=== PATIENT | female | born 1985 | race Caucasian/White ===

== ENCOUNTER 2016-09-12 16:14 | Inpatient (IN) | payer BC ==
[2016-09-12] MEDS ORDERED: Terbutaline 1 MG/ML SDV SUBCUT PRN (17:10)
[2016-09-12] MEDS ORDERED: Oxytocin/Lactated Ringers 30 UNIT/500 ML BAG IV SCH ×2 (17:15→17:30)
[2016-09-12] MEDS ORDERED: Carboprost Tromethamine 250 MCG/1 ML Amp IM PRN (17:17)
[2016-09-12] MEDS ORDERED: Sodium Chloride 0.9% 10 ML Syringe FLUSH PRN (17:17)
[2016-09-12] MEDS ORDERED: Lidocaine 1% 50 ML MDV INJECT PRN (17:17)
[2016-09-12] MEDS ORDERED: Sodium Chloride 0.9% 2.5 ML Syringe FLUSH PRN (17:17)
[2016-09-12] MEDS ORDERED: Water For Irrigation,Sterile 1,000 ML Container IRR PRN (17:17)
[2016-09-12] MEDS ORDERED: Methylergonovine 0.2 MG/1 ML Amp IM PRN (17:17)
[2016-09-12] MEDS ORDERED: Misoprostol 200 MCG Tab PO PRN (17:17)
[2016-09-12] MEDS: Lactated Ringers 1,000 ML IV SCH (17:40)
[2016-09-12] MEDS: Misoprostol 25 MCG (1/4 of 100 MCG) Tab VAG SCH ×2 (18:55→23:18)
[2016-09-12] MEDS ORDERED: Misoprostol 50 MCG (1/2 of 100 MCG) Tab VAG PRN (23:04)
[2016-09-12] MEDS ORDERED: Misoprostol 25 MCG (1/4 of 100 MCG) Tab ONE (23:12)
[2016-09-12] MEDS: Butorphanol 1 MG/ML SDV IVPUSH PRN (23:59)
[2016-09-13] MEDS: Butorphanol 1 MG/ML SDV IVPUSH PRN ×4 (05:48→12:14)
[2016-09-13] MEDS: Lactated Ringers 1,000 ML IV SCH ×3 (05:54→18:38)
[2016-09-13] MEDS ORDERED: fentaNYL 100 MCG/2 ML SDV ONE (12:51)
[2016-09-13] MEDS ORDERED: Ropivacaine HCl/PF 100 ML ONE (12:51)
--- NOTE | 2016-09-13 13:15 | PCM.PREANE ---
Preanesthetic Assessment - Anesthesia/Transfusion/Family Hx Anesthesia History: Prior Anesthesia Without Reaction - Review of Systems General: No Symptoms Pulmonary: No Symptoms Cardiovascular: No Symptoms Gastrointestinal: No symptoms Neurological: No Symptoms Other: Reports: None - Physical Assessment Height: 5 ft 9 in Weight: 108.862 kg ASA Class: 2 Mental Status: Alert & Oriented x3 Airway Class: Mallampati = 2 Dentition: Reports: Normal Dentition Thyro-Mental Finger Breadths: 3 Mouth Opening Finger Breadths: 3 ROM/Head Extension: Full Lungs: Clear to auscultation, Normal respiratory effort Cardiovascular: Regular Rate, Regular Rhythm - Lab Values: Laboratory Last Values WBC 12.22 K/uL (4.0-11.0) H 09/12/16 17:36 RBC 4.29 M/uL (4.30-5.90) L 09/12/16 17:36 Hgb 11.3 g/dL (12.0-16.0) L 09/12/16 17:36 Hct 34.9 % (36.0-46.0) L 09/12/16 17:36 MCV 81.4 fL (80.0-98.0) 09/12/16 17:36 MCH 26.3 pg (27.0-32.0) L 09/12/16 17:36 MCHC 32.4 g/dL (31.0-37.0) 09/12/16 17:36 RDW Std Deviation 40.6 fl (28.0-62.0) 09/12/16 17:36 RDW Coeff of Ayush 14 % (11.0-15.0) 09/12/16 17:36 Plt Count 272 K/uL (150-400) 09/12/16 17:36 MPV 11.20 fL (7.40-12.00) 09/12/16 17:36 Nucleated RBC % 0.0 /100WBC 09/12/16 17:36 Nucleated RBCs # 0 K/uL 09/12/16 17:36 Blood Type A POSITIVE 09/12/16 17:36 Antibody Screen NEGATIVE 09/12/16 17:36 - Allergies Allergies/Adverse Reactions: Allergies Allergy/AdvReac Type Severity Reaction Status Date / Time Penicillins Allergy Hives Verified 09/12/16 17:02 - Acknowledgements Anesthesia Type Planned: Epidural Pt an Appropriate Candidate for the Planned Anesthesia: Yes Alternatives and Risks of Anesthesia Discussed w Pt/Guardian: Yes Pt/Guardian Understands and Agrees with Anesthesia Plan: Yes PreAnesthesia Questionnaire HEENT History: Reports: None Cardiovascular History: Reports: None Respiratory History: Reports: None Gastrointestinal History: Reports: GERD Genitourinary History: Reports: None [employer] History: Reports: : 1 Para: 0 LMP (Approximate): Musculoskeletal History: Reports: None Neurological History: Reports: Migraines Psychiatric History: Reports: None Endocrine/Metabolic History: Reports: Obesity/BMI 30+ Hematologic History: Reports: None Immunologic History: Reports: None Oncologic (Cancer) History: Reports: None Dermatologic History: Reports: None - Past Surgical History HEENT Surgical History: Reports: Tonsillectomy - SUBSTANCE USE Smoking Status *Q: Never Smoker Tobacco Use Within Last Twelve Months: No Recreational Drug Use History: No - CURRENT (IN HOUSE) MEDS Current Meds: Current Medications Butorphanol Tartrate (Stadol) 1 mg IVPUSH ASDIRECTED PRN PRN Reason: Pain Last Admin: 09/13/16 12:14 Dose: 1 mg Carboprost Tromethamine (Hemabate Ds) 250 mcg IM ASDIRECTED PRN PRN Reason: Post Hemorrhage Oxytocin/Lactated Ringer's (Pitocin In Lr 30 Units/500 Ml) 30 unit in 500 mls @ 2 mls/hr IV TITRATE NASIMA; 2 MUNITS/MIN PRN Reason: Protocol Last Titration: 09/13/16 11:43 Dose: 14 munits/min, 14 mls/hr Lactated Ringer's (Ringers, Lactated) 1,000 mls @ 150 mls/hr IV ASDIRECTED NASIMA Last Admin: 09/13/16 12:55 Dose: 150 mls/hr Lidocaine HCl (Xylocaine 1%) 50 ml INJECT .ONCE PRN PRN Reason: Laceration repair Methylergonovine Maleate (Methergine) 0.2 mg IM ASDIRECTED PRN PRN Reason: Post Hemorrhage Misoprostol (Cytotec) 25 mcg VAG .ONCE NASIMA Last Admin: 09/12/16 23:18 Dose: 25 mcg Misoprostol (Cytotec) 200 mcg PO .ONCE PRN PRN Reason: Post Hemorrhage Misoprostol (Cytotec) 25 mcg VAG Q4H PRN PRN Reason: Other Last Admin: 09/13/16 03:12 Dose: 25 mcg Sodium Chloride (Saline Flush) 10 ml FLUSH ASDIRECTED PRN PRN Reason: Keep Vein Open Sodium Chloride (Saline Flush) 2.5 ml FLUSH ASDIRECTED PRN PRN Reason: Keep Vein Open Sterile Water (Sterile Water For Irrigation) 1,000 ml IRR ASDIRECTED PRN PRN Reason: delivery Terbutaline Sulfate (Brethine) 0.25 mg SUBCUT ASDIRECTED PRN PRN Reason: Tacysystole Discontinued Medications Fentanyl (Sublimaze) Confirm Administered Dose 100 mcg .ROUTE .STK-MED ONE Stop: 09/13/16 12:52 Oxytocin/Lactated Ringer's (Pitocin In Lr 30 Units/500 Ml) 30 unit in 500 mls @ 999 mls/hr IV TITRATE NASIMA PRN Reason: 999 MUNITS/MIN Stop: 09/12/16 18:01 Ropivacaine (Naropin 0.2%) Confirm Administered Dose 100 mls @ as directed .ROUTE .STK-MED ONE Stop: 09/13/16 12:52 Misoprostol (Cytotec) Confirm Administered Dose 25 mcg .ROUTE .STK-MED ONE Stop: 09/12/16 23:13
[2016-09-13] MEDS ORDERED: Acetaminophen 500 MG Tab PO ONE (18:33)
[2016-09-13] MEDS ORDERED: Acetaminophen 500 MG Tab ONE (18:35)
[2016-09-13] MEDS ORDERED: ceFAZolin 2 GM in Premix Bag 1 BAG IV ONE (20:43)
[2016-09-13] MEDS ORDERED: Lanolin 100% Cream 7 GM Tube TOP PRN (22:07)
[2016-09-13] MEDS ORDERED: Bisacodyl 10 MG Supp RECTAL PRN (22:07)
[2016-09-13] MEDS ORDERED: oxyCODONE 5 MG Tab PO PRN (22:07)
[2016-09-13] MEDS ORDERED: Docusate Sodium 100 MG Cap PO PRN (22:07)
[2016-09-13] MEDS ORDERED: Ibuprofen 400 MG Tab PO PRN (22:07)
[2016-09-13] MEDS ORDERED: Acetaminophen 500 MG Tab PO PRN (22:07)
[2016-09-13] MEDS ORDERED: Witch Hazel Medicated Pads 40/Jar TOP PRN (22:07)
[2016-09-13] MEDS ORDERED: Benzocaine/Menthol 20%-0.5% Spray 78 GM Cannister TOP PRN (22:07)
[2016-09-13] MEDS ORDERED: Aluminum Hydroxide/Magnesium Hydroxide/Simethicone Susp 30 ML Cup PO PRN (22:07)
[2016-09-13] MEDS: Ibuprofen 800 MG Tab PO PRN (23:50)
[2016-09-14] MEDS: ceFAZolin 1 GM in Premix Bag 1 BAG IV SCH ×3 (04:02→20:00)
[2016-09-14] MEDS: Acetaminophen 500 MG Tab PO PRN ×2 (09:24→18:49)
--- NOTE | 2016-09-14 09:29 | PCM.PNPP ---
- General Info Date of Service: 09/14/16 Functional Status: Reports: pain controlled, tolerating diet, ambulating, urinating - Review of Systems General: Denies: Fever, Weakness Pulmonary: Denies: shortness of breath Cardiovascular: Denies: Chest Pain, Palpitations, Lightheadedness Gastrointestinal: Denies: Nausea, Vomiting Genitourinary: Denies: flank pain Psychiatric: Reports: no symptoms - General Info Date of Service: 09/14/16 - Patient Data Vital Signs - most recent: Last Vital Signs Temp 36.7 C 09/14/16 09:17 Pulse 90 09/14/16 09:17 Resp 20 09/14/16 09:17 BP 133/56 L 09/14/16 09:17 Pulse Ox 97 09/14/16 09:17 Weight - most recent: 108.862 kg Lab Results - last 24 hrs: Laboratory Results - last 24 hr 09/14/16 Range/Units 05:26 Hgb 8.9 L (12.0-16.0) g/dL Hct 27.1 L (36.0-46.0) % Med Orders - Current: Current Medications Acetaminophen (Tylenol Extra Strength) 500 mg PO Q4H PRN PRN Reason: Pain Acetaminophen (Tylenol Extra Strength) 1,000 mg PO Q4H PRN PRN Reason: Pain Last Admin: 09/14/16 09:24 Dose: 1,000 mg Al Hydroxide/Mg Hydroxide (Mag-Al Plus) 30 ml PO Q8H PRN PRN Reason: Heartburn Benzocaine/Menthol (Dermoplast Pain Relief 20%-0.5% [place]) 78 gm TOP ASDIRECTED PRN PRN Reason: Perineal Comfort Measure Last Admin: 09/13/16 23:50 Dose: 78 gm Bisacodyl (Dulcolax) 10 mg RECTAL .ONCE PRN PRN Reason: Constipation Carboprost Tromethamine (Hemabate Ds) 250 mcg IM ASDIRECTED PRN PRN Reason: Post Hemorrhage Docusate Sodium (Colace) 100 mg PO BID PRN PRN Reason: Constipation Emollient Ointment (Lansinoh Hpa) 0 gm TOP ASDIRECTED PRN PRN Reason: Sore Nipples Oxytocin/Lactated Ringer's (Pitocin In Lr 30 Units/500 Ml) 30 unit in 500 mls @ 2 mls/hr IV TITRATE NASIMA; 2 MUNITS/MIN PRN Reason: Protocol Last Titration: 09/13/16 11:43 Dose: 14 munits/min, 14 mls/hr Lactated Ringer's (Ringers, Lactated) 1,000 mls @ 150 mls/hr IV ASDIRECTED NASIMA Last Admin: 09/13/16 18:38 Dose: 150 mls/hr Cefazolin Sodium/Dextrose 1 gm (/ Premix) 50 mls @ 100 mls/hr IV Q8H NASIMA Stop: 09/14/16 20:29 Last Admin: 09/14/16 04:02 Dose: 100 mls/hr Ibuprofen (Motrin) 400 mg PO Q4H PRN PRN Reason: Pain Ibuprofen (Motrin) 800 mg PO Q6H PRN PRN Reason: Pain Last Admin: 09/13/16 23:50 Dose: 800 mg Methylergonovine Maleate (Methergine) 0.2 mg IM ASDIRECTED PRN PRN Reason: Post Hemorrhage Misoprostol (Cytotec) 25 mcg VAG Q4H PRN PRN Reason: Other Last Admin: 09/13/16 03:12 Dose: 25 mcg Oxycodone HCl (Oxycodone) 5 mg PO Q2H PRN PRN Reason: Pain Sodium Chloride (Saline Flush) 10 ml FLUSH ASDIRECTED PRN PRN Reason: Keep Vein Open Witch Deysi (Tucks) 1 pad TOP ASDIRECTED PRN PRN Reason: comfort care Last Admin: 09/13/16 23:49 Dose: 1 pad Discontinued Medications Acetaminophen (Tylenol Extra Strength) 1,000 mg PO ONETIME ONE Stop: 09/13/16 18:34 Last Admin: 09/13/16 18:38 Dose: 1,000 mg Acetaminophen (Tylenol Extra Strength) Confirm Administered Dose 1,000 mg .ROUTE .STK-MED ONE Stop: 09/13/16 18:36 Last Admin: 09/14/16 04:04 Dose: 1,000 mg Butorphanol Tartrate (Stadol) 1 mg IVPUSH ASDIRECTED PRN PRN Reason: Pain Last Admin: 09/13/16 12:14 Dose: 1 mg Fentanyl (Sublimaze) Confirm Administered Dose 100 mcg .ROUTE .STK-MED ONE Stop: 09/13/16 12:52 Oxytocin/Lactated Ringer's (Pitocin In Lr 30 Units/500 Ml) 30 unit in 500 mls @ 999 mls/hr IV TITRATE NASIMA PRN Reason: 999 MUNITS/MIN Stop: 09/12/16 18:01 Ropivacaine (Naropin 0.2%) Confirm Administered Dose 100 mls @ as directed .ROUTE .STK-MED ONE Stop: 09/13/16 12:52 Cefazolin Sodium/Dextrose 2 gm (/ Premix) 50 mls @ 100 mls/hr IV ONETIME ONE Stop: 09/13/16 21:12 Last Admin: 09/13/16 20:49 Dose: 100 mls/hr Lidocaine HCl (Xylocaine 1%) 50 ml INJECT .ONCE PRN PRN Reason: Laceration repair Misoprostol (Cytotec) 25 mcg VAG .ONCE NASIMA Last Admin: 09/12/16 23:18 Dose: 25 mcg Misoprostol (Cytotec) 200 mcg PO .ONCE PRN PRN Reason: Post Hemorrhage Misoprostol (Cytotec) Confirm Administered Dose 25 mcg .ROUTE .STK-MED ONE Stop: 09/12/16 23:13 Sodium Chloride (Saline Flush) 2.5 ml FLUSH ASDIRECTED PRN PRN Reason: Keep Vein Open Sterile Water (Sterile Water For Irrigation) 1,000 ml IRR ASDIRECTED PRN PRN Reason: delivery Last Admin: 09/13/16 21:15 Dose: 1,000 ml Terbutaline Sulfate (Brethine) 0.25 mg SUBCUT ASDIRECTED PRN PRN Reason: Tacysystole - Interaction Infant Disposition, : in Room with Family Infant Interaction: Holding Infant Feeding: Breastfed Infant; Nursed Well Support Person: - Recovery Exam Fundal Tone: Firm Fundal Level: At Umbilicus Fundal Placement: Left Lochia Amount: Scant Lochia Color: Rubra/Red Perineum Description: Intact, Minimal Bruising/Swelling Episiotomy/Laceration: Approximated Bladder Status: Voiding Urinary Elimination: Voided - Exam General: alert, oriented Lungs: Normal respiratory effort Cardiovascular: Regular Rate, Regular Rhythm Abdomen: soft, no tenderness. No: CVA tenderness Extremities: no calf tenderness Skin: warm, dry, intact Psy/Mental Status: alert, normal affect - Problem List & Annotations (1) Vaginal delivery SNOMED Code(s): 435349460 Code(s): O80 - ENCOUNTER FOR FULL-TERM UNCOMPLICATED DELIVERY Status: Acute Current Visit: Yes - Problem List Review Problem List Initiated/Reviewed/Updated: Yes - My Orders Last 24 Hours: My Active Orders 09/13/16 22:07 Patient Status [ADT] Routine May Shower [RC] ASDIRECTED Up ad Lola [RC] ASDIRECTED Vital Signs [RC] PER UNIT ROUTINE Acetaminophen [Tylenol Extra Strength] 1,000 mg PO Q4H PRN Acetaminophen [Tylenol Extra Strength] 500 mg PO Q4H PRN Alum Hydrox/Mag Hydrox/Simeth [Mag-Al Plus] 30 ml PO Q8H PRN Benzocaine/Menthol [Dermoplast Pain Relief 20%-0.5% [place]] 78 gm TOP ASDIRECTED PRN Bisacodyl [Dulcolax] 10 mg RECTAL .ONCE PRN Docusate Sodium [Colace] 100 mg PO BID PRN Ibuprofen [Motrin] 400 mg PO Q4H PRN Ibuprofen [Motrin] 800 mg PO Q6H PRN Lanolin [Lansinoh HPA] See Dose Instructions TOP ASDIRECTED PRN Witch Deysi [Tucks] 1 pad TOP ASDIRECTED PRN oxyCODONE 5 mg PO Q2H PRN Assess Lochia [WOMSER] Per Unit Routine Assess Uterine Involution [WOMSER] Per Unit Routine Peripheral IV Discontinue [OM.PC] Routine 09/13/16 22:08 Ice Therapy [OM.PC] Per Unit Routine Perineal Care [OM.PC] Per Unit Routine Sitz Bath [OM.PC] Per Unit Routine 09/13/16 Dinner Regular Diet [DIET] 09/14/16 04:00 ceFAZolin [Ancef] 1 gm Premix Bag 1 bag IV Q8H - Assessment Assessment:: PPD 1 status post /2nd MLL repaired - Plan Plan:: Continue cares--remains afebrile. Continue antibiotics for total of 24 hours. Anticipate discharge in morning.
[2016-09-14] MEDS: Ibuprofen 800 MG Tab PO PRN (14:12)
[2016-09-15] MEDS: Ibuprofen 800 MG Tab PO PRN (04:31)
[2016-09-15 04:56] VITALS: BP 115/56
--- NOTE | 2016-09-15 07:44 | PCM48HPAN ---
Post Anesthesia Note - EVALUATION WITHIN 48HRS OF ANESTHETIC Vital Signs in Normal Range: Yes Patient Participated in Evaluation: Yes Respiratory Function Stable: Yes Airway Patent: Yes Cardiovascular Function Stable: Yes Hydration Status Stable: Yes Pain Control Satisfactory: Yes Nausea and Vomiting Control Satisfactory: Yes Mental Status Recovered: Yes
--- NOTE | 2016-09-15 09:45 | PCM.PNPP ---
- General Info Date of Service: 09/15/16 Subjective Update: Patient feels well overall--she is ambulating, voiding, pain well controlled. Lochia is dissipating nicely. She is working with . She would like to go home today. Functional Status: Reports: pain controlled, tolerating diet, ambulating, urinating - Review of Systems General: Denies: Fever, Weakness Cardiovascular: Denies: Chest Pain, Palpitations, Lightheadedness Gastrointestinal: Denies: Nausea, Vomiting Genitourinary: Denies: flank pain Skin: Reports: no symptoms Psychiatric: Reports: no symptoms - General Info Date of Service: 09/15/16 - Patient Data Vital Signs - most recent: Last Vital Signs Temp 36.4 C 09/15/16 04:00 Pulse 73 09/15/16 04:00 Resp 16 09/15/16 04:00 BP 115/56 L 09/15/16 04:00 Pulse Ox 96 09/15/16 04:00 Weight - most recent: 108.862 kg Med Orders - Current: Current Medications Acetaminophen (Tylenol Extra Strength) 500 mg PO Q4H PRN PRN Reason: Pain Acetaminophen (Tylenol Extra Strength) 1,000 mg PO Q4H PRN PRN Reason: Pain Last Admin: 09/14/16 18:49 Dose: 1,000 mg Al Hydroxide/Mg Hydroxide (Mag-Al Plus) 30 ml PO Q8H PRN PRN Reason: Heartburn Benzocaine/Menthol (Dermoplast Pain Relief 20%-0.5% [place]) 78 gm TOP ASDIRECTED PRN PRN Reason: Perineal Comfort Measure Last Admin: 09/13/16 23:50 Dose: 78 gm Bisacodyl (Dulcolax) 10 mg RECTAL .ONCE PRN PRN Reason: Constipation Carboprost Tromethamine (Hemabate Ds) 250 mcg IM ASDIRECTED PRN PRN Reason: Post Hemorrhage Docusate Sodium (Colace) 100 mg PO BID PRN PRN Reason: Constipation Emollient Ointment (Lansinoh Hpa) 0 gm TOP ASDIRECTED PRN PRN Reason: Sore Nipples Oxytocin/Lactated Ringer's (Pitocin In Lr 30 Units/500 Ml) 30 unit in 500 mls @ 2 mls/hr IV TITRATE NASIMA; 2 MUNITS/MIN PRN Reason: Protocol Last Titration: 09/13/16 11:43 Dose: 14 munits/min, 14 mls/hr Lactated Ringer's (Ringers, Lactated) 1,000 mls @ 150 mls/hr IV ASDIRECTED NASIMA Last Admin: 09/13/16 18:38 Dose: 150 mls/hr Ibuprofen (Motrin) 400 mg PO Q4H PRN PRN Reason: Pain Ibuprofen (Motrin) 800 mg PO Q6H PRN PRN Reason: Pain Last Admin: 09/15/16 04:31 Dose: 800 mg Methylergonovine Maleate (Methergine) 0.2 mg IM ASDIRECTED PRN PRN Reason: Post Hemorrhage Misoprostol (Cytotec) 25 mcg VAG Q4H PRN PRN Reason: Other Last Admin: 09/13/16 03:12 Dose: 25 mcg Oxycodone HCl (Oxycodone) 5 mg PO Q2H PRN PRN Reason: Pain Sodium Chloride (Saline Flush) 10 ml FLUSH ASDIRECTED PRN PRN Reason: Keep Vein Open Witch Deysi (Tucks) 1 pad TOP ASDIRECTED PRN PRN Reason: comfort care Last Admin: 09/13/16 23:49 Dose: 1 pad Discontinued Medications Acetaminophen (Tylenol Extra Strength) 1,000 mg PO ONETIME ONE Stop: 09/13/16 18:34 Last Admin: 09/13/16 18:38 Dose: 1,000 mg Acetaminophen (Tylenol Extra Strength) Confirm Administered Dose 1,000 mg .ROUTE .STK-MED ONE Stop: 09/13/16 18:36 Last Admin: 09/14/16 04:04 Dose: 1,000 mg Butorphanol Tartrate (Stadol) 1 mg IVPUSH ASDIRECTED PRN PRN Reason: Pain Last Admin: 09/13/16 12:14 Dose: 1 mg Fentanyl (Sublimaze) Confirm Administered Dose 100 mcg .ROUTE .STK-MED ONE Stop: 09/13/16 12:52 Oxytocin/Lactated Ringer's (Pitocin In Lr 30 Units/500 Ml) 30 unit in 500 mls @ 999 mls/hr IV TITRATE NASIMA PRN Reason: 999 MUNITS/MIN Stop: 09/12/16 18:01 Ropivacaine (Naropin 0.2%) Confirm Administered Dose 100 mls @ as directed .ROUTE .STK-MED ONE Stop: 09/13/16 12:52 Cefazolin Sodium/Dextrose 2 gm (/ Premix) 50 mls @ 100 mls/hr IV ONETIME ONE Stop: 09/13/16 21:12 Last Admin: 09/13/16 20:49 Dose: 100 mls/hr Cefazolin Sodium/Dextrose 1 gm (/ Premix) 50 mls @ 100 mls/hr IV Q8H NASIMA Stop: 09/14/16 20:29 Last Admin: 09/14/16 20:00 Dose: 100 mls/hr Lidocaine HCl (Xylocaine 1%) 50 ml INJECT .ONCE PRN PRN Reason: Laceration repair Misoprostol (Cytotec) 25 mcg VAG .ONCE NASIMA Last Admin: 09/12/16 23:18 Dose: 25 mcg Misoprostol (Cytotec) 200 mcg PO .ONCE PRN PRN Reason: Post Hemorrhage Misoprostol (Cytotec) Confirm Administered Dose 25 mcg .ROUTE .STK-MED ONE Stop: 09/12/16 23:13 Sodium Chloride (Saline Flush) 2.5 ml FLUSH ASDIRECTED PRN PRN Reason: Keep Vein Open Sterile Water (Sterile Water For Irrigation) 1,000 ml IRR ASDIRECTED PRN PRN Reason: delivery Last Admin: 09/13/16 21:15 Dose: 1,000 ml Terbutaline Sulfate (Brethine) 0.25 mg SUBCUT ASDIRECTED PRN PRN Reason: Tacysystole - Interaction Infant Disposition, : in Room with Family Infant Interaction: Holding Feeding: Breastfed Infant; Nursed Well Support Person: - Recovery Exam Fundal Tone: Firm Fundal Level: At Umbilicus Fundal Placement: Midline Lochia Amount: Small Lochia Color: Rubra/Red Perineum Description: Intact, Minimal Bruising/Swelling Episiotomy/Laceration: Approximated Bladder Status: Nonpalpable Urinary Elimination: Voided - Exam General: alert, oriented Lungs: Normal respiratory effort Cardiovascular: Regular Rate, Regular Rhythm Abdomen: soft, no tenderness. No: CVA tenderness Extremities: no calf tenderness Skin: warm, dry, intact Psy/Mental Status: alert, normal affect - Problem List & Annotations (1) Vaginal delivery SNOMED Code(s): 397572513 Code(s): O80 - ENCOUNTER FOR FULL-TERM UNCOMPLICATED DELIVERY Status: Acute Current Visit: Yes - Problem List Review Problem List Initiated/Reviewed/Updated: Yes - My Orders Last 24 Hours: My Active Orders 09/15/16 09:43 Ready for Discharge [RC] PER UNIT ROUTINE - Assessment Assessment:: PPD 2 status post /2nd MLL repaired - Plan Plan:: Discharge to home today. Discharge instructions reviewed. Infection and bleeding warnings reviewed. Follow up at [facility] 6 weeks.
[2016-09-15] MEDS: Acetaminophen 500 MG Tab PO PRN (09:48)
--- NOTE | 2016-09-16 06:12 | OR ---
SURGEON: Zenaida Alcaraz M.D. DATE OF PROCEDURE: 09/13/2016 PREOPERATIVE DIAGNOSES: 1. A 39 and 5-week intrauterine . 2. Premature prolonged rupture of membranes. POSTOPERATIVE DIAGNOSES: 1. A 39 and 5-week intrauterine . 2. Premature prolonged rupture of membranes. PROCEDURE: Spontaneous vaginal delivery, second-degree midline laceration repair. ESTIMATED BLOOD LOSS: 350 mL. ANESTHESIA: Epidural. COMPLICATIONS: None. FINDINGS: Term male, score 8 at 1 minute and 9 at 5 minutes, weight of 4090 g. Spontaneous delivery, intact placenta, 3-vessel cord. Maternal fever, received Ancef 2 g. DISPOSITION: to nursery, mom in LDRP, stable. PROCEDURE DETAILS: Ignacia is a 31-year-old, G1, P0, at 39 and 5 weeks' gestational age, who was admitted on the late afternoon of 09/13/2016 with spontaneous rupture of membranes. Clear fluid was noted. She was group B beta strep negative. On initial examination, she was found to be 2 cm, 50% effaced, -3 station. Therefore, she was initiated on Cytotec ripening. heart tones category one with baseline in the 120s. Routine labs have been drawn. IV hydration was initiated. She received 3 doses of Cytotec in cervix, then nicely to 2 cm, 80% effaced, and minus 2 station by the following morning. Therefore, she was initiated on Pitocin augmentation at that juncture. 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 She became more comfortable thereafter and began progressing more rapidly. In the early afternoon, she was found to be 6 cm and shortly before 6:00 p.m., was found to be 9.5 cm, 100% effaced, 0 station. She progressed to complete within the next hour and began pushing efforts. Shortly after 6:30 p.m., she had a temperature of a 100.7, she received Tylenol Extra Strength and received 300 of IV fluid bolus. The patient pushed readily for the next 2 hours to a +4 station. She did have one further temperature of 101.2 and received 2 g of Ancef. heart tones remained in the 150s. Upon my arrival, the patient was placed in modified dorsal lithotomy position, was prepped and draped in the usual aseptic manner. Continued with pushing efforts, was able to push to a +5 station, delivered 's head atraumatically, spontaneously, followed by anterior shoulder, posterior shoulder, remainder of body by without difficulty. Nuchal cord x1 was present and reduced manually. Infant's oropharynx, nares bulb suctioned. Cord was clamped x2 and cut. was handed off to his mother, attending nursing staff at her side. Cord arterial, cord venous, cord blood sampling was obtained. Light suprapubic pressure was applied while the placenta was delivered spontaneously intact. We sent to Pathology for further analysis. Vigorous fundal uterine massage was then applied while 30 units of Pitocin was delivered in 500 mL IV fluid. Upon inspection of cervix, vaginal sidewalls, and perineum, there was found to be a second-degree midline laceration present and this was repaired using 3-0 Vicryl in the usual fashion and 2 first-degree hymenal lacerations were reapproximated using [id number] sutures. Hemostasis thereafter evident. Uterus remained firm. Sponge, instrument, needle count was correct x2. The patient tolerated the procedure well. Overall, she will remain in LDRP. in nursery. We will continue antibiotics for 24 hours. KIRILL / MAKENNA /[id number]
== END 2016-09-15 12:00 | disposition home or self-care (01) | DRG 560 ==
LOC: MW.OBCHECK 16:14 → MW.OB 16:15 → MW.OBCHECK 09-13 00:57 → MW.OB 09-13 00:59 → OBSVTOIN 09-13 21:15
PROVIDERS: ADMIT Obstetrics & Gynecology; ATTEND Obstetrics & Gynecology
PROC: 10E0XZZ Delivery of Products of Conception, External Approach (ICD-10-PCS; principal; 2016-09-13)
PROC: 0KQM0ZZ Repair Perineum Muscle, Open Approach (ICD-10-PCS; 2016-09-13)
PROC: 3E0P7GC Introduction of Other Therapeutic Substance into Female Reproductive, Via Natural or Artificial Opening (ICD-10-PCS; 2016-09-13)
DX: O42.92 Full-term premature rupture of membranes, unspecified as to length of time between rupture and onset of labor (principal); O70.1 Second degree perineal laceration during delivery; O75.2 Pyrexia during labor, not elsewhere classified; O69.1XX0 Labor and delivery complicated by cord around neck, with compression, not applicable or unspecified; Z3A.39 39 weeks gestation of pregnancy; Z37.0 Single live birth
CPT/HCPCS: 01967; 36415; 59025; 85014; 85018; 85027; 86850; 86900; 86901; 88307; A9270-GY; J0595; J0690; J2795; J3010; J7120

== ENCOUNTER 2018-08-17 15:49 | Inpatient (IN) | payer BC ==
[2018-08-17] MEDS ORDERED: Nalbuphine 10 MG/1 ML Vial IVPUSH PRN (16:26)
[2018-08-17] MEDS ORDERED: Tranexamic Acid 1,000 MG in Sodium Chloride 0.9% 100 ML IV PRN (16:26)
[2018-08-17] MEDS ORDERED: Methylergonovine 0.2 MG/1 ML Amp IM PRN (16:26)
[2018-08-17] MEDS ORDERED: Carboprost Tromethamine 250 MCG/1 ML Amp IM PRN (16:26)
[2018-08-17] MEDS ORDERED: Lidocaine 1% 50 ML MDV INJECT PRN (16:26)
[2018-08-17] MEDS ORDERED: Sodium Chloride 0.9% 2.5 ML Syringe FLUSH PRN (16:26)
[2018-08-17] MEDS ORDERED: Sodium Chloride 0.9% 10 ML SDV IV PRN (16:26)
[2018-08-17] MEDS ORDERED: Ondansetron 4 MG/2 ML SDV IV PRN (16:26)
[2018-08-17] MEDS ORDERED: Butorphanol 1 MG/ML SDV IVPUSH PRN (16:26)
[2018-08-17] MEDS ORDERED: Sodium Chloride 0.9% 10 ML Syringe FLUSH PRN (16:26)
[2018-08-17] MEDS ORDERED: Water For Irrigation,Sterile 1,000 ML Container IRR PRN (16:26)
[2018-08-17] MEDS ORDERED: Oxytocin/0.9 % Sodium Chloride 30 UNIT/500 ML BAG IV SCH ×2 (16:30→16:45)
[2018-08-17] MEDS: Lactated Ringers 1,000 ML IV SCH ×2 (17:30→20:03)
[2018-08-17 17:33] LABS: CHLORIDE,CL 104 mmol/L (98-107); SODIUM,NA 138 mmol/L (136-145)
[2018-08-17] MEDS ORDERED: fentaNYL 100 MCG/2 ML SDV ONE (19:21)
[2018-08-17] MEDS ORDERED: Lidocaine HCl/EPINEPHrine 5 ML IJ ONE (19:22)
[2018-08-18] MEDS ORDERED: Lanolin 100% Cream 7 GM Tube TOP PRN (01:40)
[2018-08-18] MEDS ORDERED: Acetaminophen 500 MG Tab PO PRN (01:40)
[2018-08-18] MEDS ORDERED: Witch Hazel Medicated Pads 40/Jar TOP PRN (01:40)
[2018-08-18] MEDS ORDERED: Benzocaine/Menthol 20%-0.5% Spray 78 GM Cannister TOP PRN (01:40)
[2018-08-18] MEDS ORDERED: oxyCODONE 5 MG Tab PO PRN (01:40)
[2018-08-18] MEDS ORDERED: Ibuprofen 400 MG Tab PO PRN (01:40)
[2018-08-18] MEDS ORDERED: Bisacodyl 10 MG Supp RECTAL PRN (01:40)
[2018-08-18] MEDS ORDERED: Docusate Sodium 100 MG Cap PO PRN (01:40)
--- NOTE | 2018-08-18 01:49 | PCM.OPNOTE ---
- General Post-Op/Procedure Note Date of Surgery/Procedure: 08/18/18 Operative Procedure(s): /2nd MLL repaired Findings: Viable female APGARs 8,9 weight 4870 gm. Spontaneous delivery intact placenta with 3V cord Pre Op Diagnosis: 39 week IUP. Mild preeclampsia. LGA fetus Post-Op Diagnosis: Same Anesthesia Technique: Epidural Primary Surgeon: Zenaida Alcaraz EBL in mLs: 350 Complications: none known Condition: Good Free Text/Narrative:: Intake & Output 08/17/18 08/17/18 08/18/18 14:59 22:59 06:59 Output Total 175 Balance -175 Dictation [id number]
--- NOTE | 2018-08-18 03:18 | OR ---
SURGEON: Zenaida Alcaraz M.D. DATE OF PROCEDURE: 08/18/2018 PREOPERATIVE DIAGNOSES: 1. 39-week intrauterine . 2. Mild preeclampsia. 3. Large for gestational age fetus. POSTOPERATIVE DIAGNOSES: 1. 39-week intrauterine . 2. Mild preeclampsia. 3. Large for gestational age fetus. PROCEDURE: Spontaneous vaginal delivery, second-degree midline laceration repaired. ANESTHESIA: Epidural. ESTIMATED BLOOD LOSS: 350 mL. COMPLICATIONS: None. FINDINGS: Viable female. score 8 at 1 minute and 9 at 5 minutes. Weight of 4870 g. Spontaneous delivery, intact placenta, 3-vessel cord. DISPOSITION: to nursery, mom in LDRP. PROCEDURE DETAILS: Ignacia is a 32-year-old, G2, P1, at 38 and 6 weeks gestational age who presented to clinic on the afternoon of 08/17/2018 for routine OB visit. She has been followed closely for gestational proteinuria and blood pressures were elevated in clinic today in the 140s over 90s despite lying on her left side and she has 100 mg of protein in her urinalysis dip. She denies headaches or visual changes. Fetus is noted to be LGA fetus with potential macrosomia. Her cervix is stable at 3 cm. Therefore, given the now elevated blood pressures with proteinuria, felt best to proceed with delivery for mild preeclampsia. Risks of procedure have been discussed. Proper consent obtained. The patient was admitted to Labor and delivery. Routine labs and PIH labs were drawn, which were otherwise reassuring. The patient's blood pressures remained in the 130s over 80s to 90s. She was admitted. IV hydration was initiated. Pitocin induction was initiated. She underwent amniotomy shortly before 6:00 p.m., clear fluid was returned. She continued to progress in the early evening hours, became increasingly uncomfortable, underwent regional anesthesia from epidural. At that time, she was found to be 4 cm. Within next hour and a half, she progressed to 8 cm and then within the next 2 hours progressed to complete 100% effaced, +1 station. The patient was very comfortable with her epidural, began having some pressure, was found to be +2 station, began pushing efforts, pushed readily to a +3 station. The patient was then placed in modified dorsal lithotomy position, was prepped and draped in the usual aseptic manner. Continued with pushing efforts and was able to deliver infant's head atraumatically, spontaneously, followed by anterior shoulder, posterior shoulder, and remainder of the body. The infant's oropharynx and nares bulb suctioned. Infant was handed off to her mother with attending nursing staff at her side. Delayed cord clamping was now performed. The cord was clamped x2 and cut. Cord arterial, cord venous, cord blood samples were obtained. Light pressure was applied while the placenta was delivered spontaneously intact. Vigorous fundal uterine massage was then applied while 30 units Pitocin was delivered in 500 mL IV fluids. Upon inspection of cervix, vaginal sidewalls, and perineum, there was found to be a second-degree midline laceration, repaired using 3-0 Vicryl in the usual fashion. Uterus remained firm. Hemostasis remained evident. Sponge, instrument, and needle count was correct. The patient remained in LDRP. We will monitor blood pressures closely. Infant to nursery. KIRILL / MAKENNA /[id number]
[2018-08-18] MEDS: Ibuprofen 800 MG Tab PO PRN ×2 (07:36→17:09)
--- NOTE | 2018-08-18 07:37 | PCM.PREANE ---
Preanesthetic Assessment - Procedure Proposed Procedure: RIAN - Anesthesia/Transfusion/Family Hx Anesthesia History: Prior Anesthesia Without Reaction Family History of Anesthesia Reaction: No Transfusion History: No Prior Transfusion(s) Intubation History: Unknown - Review of Systems General: No Symptoms Pulmonary: No Symptoms Cardiovascular: No Symptoms Gastrointestinal: No Symptoms Neurological: No Symptoms Other: Reports: Anxiety - Physical Assessment Height: 5 ft 8 in Weight: 123.377 kg ASA Class: 3 (morbid obesity) Mental Status: Alert & Oriented x3 Airway Class: Mallampati = 2 Dentition: Reports: Normal Dentition ROM/Head Extension: Full Lungs: Clear to Auscultation, Normal Respiratory Effort Cardiovascular: Regular Rate, Regular Rhythm - Lab Values: Laboratory Last Values WBC 11.42 K/uL (4.0-11.0) H 08/17/18 16:52 RBC 4.23 M/uL (4.30-5.90) L 08/17/18 16:52 Hgb 10.8 g/dL (12.0-16.0) L 08/17/18 16:52 Hct 33.5 % (36.0-46.0) L 08/17/18 16:52 MCV 79.2 fL (80.0-98.0) L 08/17/18 16:52 MCH 25.5 pg (27.0-32.0) L 08/17/18 16:52 MCHC 32.2 g/dL (31.0-37.0) 08/17/18 16:52 RDW Std Deviation 39.2 fl (28.0-62.0) 08/17/18 16:52 RDW Coeff of Ayush 14 % (11.0-15.0) 08/17/18 16:52 Plt Count 258 K/uL (150-400) 08/17/18 16:52 MPV 12.00 fL (7.40-12.00) 08/17/18 16:52 Nucleated RBC % 0.0 /100WBC 08/17/18 16:52 Nucleated RBCs # 0 K/uL 08/17/18 16:52 Cord ABG pH 7.163 (7.18-7.38) L 08/18/18 01:13 Cord ABG Base Excess -7 (-10--2) 08/18/18 01:13 Cord VBG pH 7.326 (7.25-7.45) 08/18/18 01:13 Cord VBG Base Excess -5 (-10--2) 08/18/18 01:13 Sodium 138 mmol/L (136-145) 08/17/18 16:52 Potassium 4.1 mmol/L (3.5-5.1) 08/17/18 16:52 Chloride 104 mmol/L (98-107) 08/17/18 16:52 Carbon Dioxide 23.6 mmol/L (21.0-32.0) 08/17/18 16:52 BUN 7 mg/dL (7.0-18.0) 08/17/18 16:52 Creatinine 0.7 mg/dL (0.6-1.0) 08/17/18 16:52 Est Cr Clr Drug Dosing 115.31 mL/min 08/17/18 16:52 Estimated GFR (MDRD) > 60.0 ml/min 08/17/18 16:52 Glucose 85 mg/dL (74-106) 08/17/18 16:52 Calcium 8.8 mg/dL (8.5-10.1) 08/17/18 16:52 Total Bilirubin 0.3 mg/dL (0.2-1.0) 08/17/18 16:52 AST 15 IU/L (15-37) 08/17/18 16:52 ALT 12 IU/L (14-63) L 08/17/18 16:52 Alkaline Phosphatase 143 U/L (46-116) H 08/17/18 16:52 Total Protein 6.6 g/dL (6.4-8.2) 08/17/18 16:52 Albumin 2.5 g/dL (3.4-5.0) L 08/17/18 16:52 Globulin 4.1 g/dL (2.6-4.0) H 08/17/18 16:52 Albumin/Globulin Ratio 0.6 (0.9-1.6) L 08/17/18 16:52 Blood Type A POSITIVE 08/17/18 16:52 Antibody Screen NEGATIVE 08/17/18 16:52 - Allergies Allergies/Adverse Reactions: Allergies Allergy/AdvReac Type Severity Reaction Status Date / Time Penicillins Allergy Hives Verified 09/12/16 17:02 - Blood Blood Available: No Product(s) Available: None - Anesthesia Plan Pre-Op Medication Ordered: None - Acknowledgements Anesthesia Type Planned: Epidural Pt an Appropriate Candidate for the Planned Anesthesia: Yes Alternatives and Risks of Anesthesia Discussed w Pt/Guardian: Yes Pt/Guardian Understands and Agrees with Anesthesia Plan: Yes PreAnesthesia Questionnaire HEENT History: Reports: None Cardiovascular History: Reports: None Respiratory History: Reports: None Gastrointestinal History: Reports: GERD Genitourinary History: Reports: None [employer] History: Reports: Musculoskeletal History: Reports: None Neurological History: Reports: Migraines Psychiatric History: Reports: None Endocrine/Metabolic History: Reports: Obesity/BMI 30+ Hematologic History: Reports: None Immunologic History: Reports: None Oncologic (Cancer) History: Reports: None Dermatologic History: Reports: None - Past Surgical History HEENT Surgical History: Reports: Oral Surgery, Tonsillectomy Other HEENT Surgeries/Procedures: wisdom teeth: 2005. Appendectomy: 2004. Tonsillectomy: 2007 GI Surgical History: Reports: None - SUBSTANCE USE Smoking Status *Q: Never Smoker Second Hand Smoke Exposure: No Recreational Drug Use History: No - CURRENT (IN HOUSE) MEDS Current Meds: Current Medications Acetaminophen (Tylenol Extra Strength) 500 mg PO Q4H PRN PRN Reason: Pain Acetaminophen (Tylenol Extra Strength) 1,000 mg PO Q4H PRN PRN Reason: Pain Benzocaine/Menthol (Dermoplast Pain Relief 20%-0.5% [place]) 78 gm TOP ASDIRECTED PRN PRN Reason: Perineal Comfort Measure Bisacodyl (Dulcolax) 10 mg RECTAL ONETIME PRN PRN Reason: Constipation Carboprost Tromethamine (Hemabate Ds) 250 mcg IM ASDIRECTED PRN PRN Reason: Post Hemorrhage Docusate Sodium (Colace) 100 mg PO BID PRN PRN Reason: Constipation Emollient Ointment (Lansinoh Hpa) 0 gm TOP ASDIRECTED PRN PRN Reason: Sore Nipples Last Admin: 08/18/18 02:39 Dose: 7 gm Lactated Ringer's (Ringers, Lactated) 1,000 mls @ 150 mls/hr IV ASDIRECTED NASIMA Last Admin: 08/17/18 20:03 Dose: 150 mls/hr Oxytocin/Sodium Chloride (Oxytocin 30 Unit/500 Ml-Ns) 30 unit in 500 mls @ 999 mls/hr IV TITRATE NASIMA Tranexamic Acid 1,000 mg/ (Sodium Chloride) 110 mls @ 660 mls/hr IV ONETIME PRN PRN Reason: Bleeding Oxytocin/Sodium Chloride (Oxytocin 30 Unit/500 Ml-Ns) 30 unit in 500 mls @ 2 mls/hr IV TITRATE NASIMA; Protocol Last Infusion: 08/18/18 01:14 Dose: 500 mls/hr Ibuprofen (Motrin) 400 mg PO Q4H PRN PRN Reason: Pain Ibuprofen (Motrin) 800 mg PO Q6H PRN PRN Reason: Pain Lidocaine HCl (Xylocaine 1%) 50 ml INJECT ONETIME PRN PRN Reason: Laceration repair Methylergonovine Maleate (Methergine) 0.2 mg IM ASDIRECTED PRN PRN Reason: Post Hemorrhage Nalbuphine HCl (Nubain) 10 mg IVPUSH Q1H PRN PRN Reason: Pain (severe 7-10) Ondansetron HCl (Zofran) 4 mg IV Q4H PRN PRN Reason: Nausea/Vomiting Oxycodone HCl (Oxycodone) 5 mg PO Q2H PRN PRN Reason: Pain Sodium Chloride (Saline Flush) 10 ml FLUSH ASDIRECTED PRN PRN Reason: Keep Vein Open Sodium Chloride (Saline Flush) 2.5 ml FLUSH ASDIRECTED PRN PRN Reason: Keep Vein Open Sodium Chloride (Normal Saline) 10 ml IV ASDIRECTED PRN PRN Reason: IV Use Sterile Water (Sterile Water For Irrigation) 1,000 ml IRR ASDIRECTED PRN PRN Reason: delivery Witch Deysi (Tucks) 1 pad TOP ASDIRECTED PRN PRN Reason: comfort care Discontinued Medications Butorphanol Tartrate (Stadol) 1 mg IVPUSH Q1H PRN PRN Reason: Pain Fentanyl (Sublimaze) Confirm Administered Dose 100 mcg .ROUTE .STK-MED ONE Stop: 08/17/18 19:22 Last Admin: 08/17/18 21:54 Dose: Not Given Fentanyl/Bupivacaine HCl (Jdvhbuyo-Inlag-Il 2 Mcg/Ml-0.125%) Confirm Administered Dose 100 mls @ as directed .ROUTE .STK-MED ONE Stop: 08/17/18 19:23 Last Admin: 08/17/18 21:54 Dose: Not Given Lidocaine/Epinephrine (Lidocaine 1.5%-Epi 1:200,000) Confirm Administered Dose 5 ml IJ .STK-MED ONE Stop: 08/17/18 19:23 Last Admin: 08/17/18 21:54 Dose: Not Given
--- NOTE | 2018-08-18 07:38 | PCM48HPAN ---
Post Anesthesia Note - EVALUATION WITHIN 48HRS OF ANESTHETIC Vital Signs in Normal Range: Yes Patient Participated in Evaluation: Yes Respiratory Function Stable: Yes Airway Patent: Yes Cardiovascular Function Stable: Yes Hydration Status Stable: Yes Pain Control Satisfactory: Yes Nausea and Vomiting Control Satisfactory: Yes Mental Status Recovered: Yes - COMMENTS/OBSERVATIONS Free Text/Narrative:: Denies pain or any complications. Satisfied with anesthesia services.
--- NOTE | 2018-08-18 10:47 | PCM.PNPP ---
- General Info Date of Service: 08/18/18 Functional Status: Reports: Pain Controlled, Tolerating Diet, Ambulating, Urinating - Review of Systems General: Denies: Fever, Weakness Pulmonary: Denies: Shortness of Breath Cardiovascular: Denies: Chest Pain, Palpitations, Lightheadedness Gastrointestinal: Denies: Abdominal Pain, Nausea, Vomiting Genitourinary: Denies: Flank Pain Musculoskeletal: Reports: No Symptoms Skin: Reports: No Symptoms Neurological: Reports: No Symptoms. Denies: Headache Psychiatric: Reports: No Symptoms - Patient Data Weight - Most Recent: 123.377 kg I&O - Last 24 Hours: Intake & Output 08/17/18 08/18/18 08/18/18 22:59 06:59 14:59 Output Total 175 Balance -175 Lab Results - Last 24 Hours: Laboratory Results - last 24 hr 08/17/18 08/17/18 08/17/18 Range/Units 16:52 16:52 16:52 WBC 11.42 H (4.0-11.0) K/uL RBC 4.23 L (4.30-5.90) M/uL Hgb 10.8 L (12.0-16.0) g/dL Hct 33.5 L (36.0-46.0) % MCV 79.2 L (80.0-98.0) fL MCH 25.5 L (27.0-32.0) pg MCHC 32.2 (31.0-37.0) g/dL RDW Std Deviation 39.2 (28.0-62.0) fl RDW Coeff of Ayush 14 (11.0-15.0) % Plt Count 258 (150-400) K/uL MPV 12.00 (7.40-12.00) fL Nucleated RBC % 0.0 /100WBC Nucleated RBCs # 0 K/uL Cord ABG pH (7.18-7.38) Cord ABG Base Excess (-10--2) Cord VBG pH (7.25-7.45) Cord VBG Base Excess (-10--2) Sodium 138 (136-145) mmol/L Potassium 4.1 (3.5-5.1) mmol/L Chloride 104 (98-107) mmol/L Carbon Dioxide 23.6 (21.0-32.0) mmol/L BUN 7 (7.0-18.0) mg/dL Creatinine 0.7 (0.6-1.0) mg/dL Est Cr Clr Drug Dosing 115.31 mL/min Estimated GFR (MDRD) > 60.0 ml/min Glucose 85 (74-106) mg/dL Calcium 8.8 (8.5-10.1) mg/dL Total Bilirubin 0.3 (0.2-1.0) mg/dL AST 15 (15-37) IU/L ALT 12 L (14-63) IU/L Alkaline Phosphatase 143 H (46-116) U/L Total Protein 6.6 (6.4-8.2) g/dL Albumin 2.5 L (3.4-5.0) g/dL Globulin 4.1 H (2.6-4.0) g/dL Albumin/Globulin Ratio 0.6 L (0.9-1.6) Blood Type A POSITIVE Antibody Screen NEGATIVE 08/18/18 Range/Units 01:13 WBC (4.0-11.0) K/uL RBC (4.30-5.90) M/uL Hgb (12.0-16.0) g/dL Hct (36.0-46.0) % MCV (80.0-98.0) fL MCH (27.0-32.0) pg MCHC (31.0-37.0) g/dL RDW Std Deviation (28.0-62.0) fl RDW Coeff of Ayush (11.0-15.0) % Plt Count (150-400) K/uL MPV (7.40-12.00) fL Nucleated RBC % /100WBC Nucleated RBCs # K/uL Cord ABG pH 7.163 L (7.18-7.38) Cord ABG Base Excess -7 (-10--2) Cord VBG pH 7.326 (7.25-7.45) Cord VBG Base Excess -5 (-10--2) Sodium (136-145) mmol/L Potassium (3.5-5.1) mmol/L Chloride (98-107) mmol/L Carbon Dioxide (21.0-32.0) mmol/L BUN (7.0-18.0) mg/dL Creatinine (0.6-1.0) mg/dL Est Cr Clr Drug Dosing mL/min Estimated GFR (MDRD) ml/min Glucose (74-106) mg/dL Calcium (8.5-10.1) mg/dL Total Bilirubin (0.2-1.0) mg/dL AST (15-37) IU/L ALT (14-63) IU/L Alkaline Phosphatase (46-116) U/L Total Protein (6.4-8.2) g/dL Albumin (3.4-5.0) g/dL Globulin (2.6-4.0) g/dL Albumin/Globulin Ratio (0.9-1.6) Blood Type Antibody Screen Med Orders - Current: Current Medications Acetaminophen (Tylenol Extra Strength) 500 mg PO Q4H PRN PRN Reason: Pain Acetaminophen (Tylenol Extra Strength) 1,000 mg PO Q4H PRN PRN Reason: Pain Benzocaine/Menthol (Dermoplast Pain Relief 20%-0.5% [place]) 78 gm TOP ASDIRECTED PRN PRN Reason: Perineal Comfort Measure Bisacodyl (Dulcolax) 10 mg RECTAL ONETIME PRN PRN Reason: Constipation Carboprost Tromethamine (Hemabate Ds) 250 mcg IM ASDIRECTED PRN PRN Reason: Post Hemorrhage Docusate Sodium (Colace) 100 mg PO BID PRN PRN Reason: Constipation Emollient Ointment (Lansinoh Hpa) 0 gm TOP ASDIRECTED PRN PRN Reason: Sore Nipples Last Admin: 08/18/18 02:39 Dose: 7 gm Lactated Ringer's (Ringers, Lactated) 1,000 mls @ 150 mls/hr IV ASDIRECTED NASIMA Last Admin: 08/17/18 20:03 Dose: 150 mls/hr Oxytocin/Sodium Chloride (Oxytocin 30 Unit/500 Ml-Ns) 30 unit in 500 mls @ 999 mls/hr IV TITRATE NASIMA Tranexamic Acid 1,000 mg/ (Sodium Chloride) 110 mls @ 660 mls/hr IV ONETIME PRN PRN Reason: Bleeding Oxytocin/Sodium Chloride (Oxytocin 30 Unit/500 Ml-Ns) 30 unit in 500 mls @ 2 mls/hr IV TITRATE NASIMA; Protocol Last Infusion: 08/18/18 01:14 Dose: 500 mls/hr Ibuprofen (Motrin) 400 mg PO Q4H PRN PRN Reason: Pain Ibuprofen (Motrin) 800 mg PO Q6H PRN PRN Reason: Pain Last Admin: 08/18/18 07:36 Dose: 800 mg Lidocaine HCl (Xylocaine 1%) 50 ml INJECT ONETIME PRN PRN Reason: Laceration repair Methylergonovine Maleate (Methergine) 0.2 mg IM ASDIRECTED PRN PRN Reason: Post Hemorrhage Nalbuphine HCl (Nubain) 10 mg IVPUSH Q1H PRN PRN Reason: Pain (severe 7-10) Ondansetron HCl (Zofran) 4 mg IV Q4H PRN PRN Reason: Nausea/Vomiting Oxycodone HCl (Oxycodone) 5 mg PO Q2H PRN PRN Reason: Pain Sodium Chloride (Saline Flush) 10 ml FLUSH ASDIRECTED PRN PRN Reason: Keep Vein Open Sodium Chloride (Saline Flush) 2.5 ml FLUSH ASDIRECTED PRN PRN Reason: Keep Vein Open Sodium Chloride (Normal Saline) 10 ml IV ASDIRECTED PRN PRN Reason: IV Use Sterile Water (Sterile Water For Irrigation) 1,000 ml IRR ASDIRECTED PRN PRN Reason: delivery Witch Deysi (Tucks) 1 pad TOP ASDIRECTED PRN PRN Reason: comfort care Discontinued Medications Butorphanol Tartrate (Stadol) 1 mg IVPUSH Q1H PRN PRN Reason: Pain Fentanyl (Sublimaze) Confirm Administered Dose 100 mcg .ROUTE .STK-MED ONE Stop: 08/17/18 19:22 Last Admin: 08/17/18 21:54 Dose: Not Given Fentanyl/Bupivacaine HCl (Ypwrkbri-Raeis-Uq 2 Mcg/Ml-0.125%) Confirm Administered Dose 100 mls @ as directed .ROUTE .STK-MED ONE Stop: 08/17/18 19:23 Last Admin: 08/17/18 21:54 Dose: Not Given Lidocaine/Epinephrine (Lidocaine 1.5%-Epi 1:200,000) Confirm Administered Dose 5 ml IJ .STK-MED ONE Stop: 08/17/18 19:23 Last Admin: 08/17/18 21:54 Dose: Not Given - Interaction Support Person: - Exam General: Alert, Oriented Neck: Supple Lungs: Clear to Auscultation, Normal Respiratory Effort Cardiovascular: Regular Rate, Regular Rhythm GI/Abdominal Exam: Normal Bowel Sounds, Soft Extremities: Pedal Edema (1+). No: Mor's Sign Skin: Warm, Dry, Intact Psy/Mental Status: Alert, Normal Affect - Problem List & Annotations (1) Vaginal delivery SNOMED Code(s): 918024184 Code(s): O80 - ENCOUNTER FOR FULL-TERM UNCOMPLICATED DELIVERY Status: Acute Current Visit: No (2) Mild preeclampsia SNOMED Code(s): 65030464 Code(s): O14.00 - MILD TO MODERATE PRE-ECLAMPSIA, UNSPECIFIED TRIMESTER Status: Acute Current Visit: Yes - Problem List Review Problem List Initiated/Reviewed/Updated: Yes - My Orders Last 24 Hours: My Active Orders 08/17/18 16:26 Patient Status [ADT] Routine Heart Tones [RC] CONTINUOUS Non Stress Test [RC] PER UNIT ROUTINE Vaginal Exam [RC] PRN Vital Signs [RC] PER UNIT ROUTINE Carboprost Tromethamine [Hemabate DS] 250 mcg IM ASDIRECTED PRN Lidocaine 1% [Xylocaine 1%] 50 ml INJECT ONETIME PRN Methylergonovine [Methergine] 0.2 mg IM ASDIRECTED PRN Nalbuphine [Nubain] 10 mg IVPUSH Q1H PRN Ondansetron [Zofran] 4 mg IV Q4H PRN Sodium Chloride 0.9% [Normal Saline] 10 ml IV ASDIRECTED PRN Sodium Chloride 0.9% [Saline Flush] 10 ml FLUSH ASDIRECTED PRN Sodium Chloride 0.9% [Saline Flush] 2.5 ml FLUSH ASDIRECTED PRN Tranexamic Acid [Cyklokapron] 1,000 mg Sodium Chloride 0.9% [Normal Saline] 100 ml IV ONETIME Water For Irrigation,Sterile [Sterile Water for Irrigation] 1,000 ml IRR ASDIRECTED PRN Peripheral IV Insertion Adult [OM.PC] Routine Resuscitation Status Routine 08/17/18 16:30 Lactated Ringers [Ringers, Lactated] 1,000 ml IV ASDIRECTED Oxytocin/0.9 % Sodium Chloride [Oxytocin 30 Unit/500 ML-NS] 30 unit in 500 ml IV TITRATE 08/17/18 16:45 Oxytocin/0.9 % Sodium Chloride [Oxytocin 30 Unit/500 ML-NS] 30 unit in 500 ml IV TITRATE 08/18/18 01:40 Patient Status [ADT] Routine May Shower [RC] ASDIRECTED Up ad Lola [RC] ASDIRECTED Vital Signs [RC] PER UNIT ROUTINE Acetaminophen [Tylenol Extra Strength] 1,000 mg PO Q4H PRN Acetaminophen [Tylenol Extra Strength] 500 mg PO Q4H PRN Benzocaine/Menthol [Dermoplast Pain Relief 20%-0.5% [place]] 78 gm TOP ASDIRECTED PRN Bisacodyl [Dulcolax] 10 mg RECTAL ONETIME PRN Docusate Sodium [Colace] 100 mg PO BID PRN Ibuprofen [Motrin] 400 mg PO Q4H PRN Ibuprofen [Motrin] 800 mg PO Q6H PRN Lanolin [Lansinoh HPA] See Dose Instructions TOP ASDIRECTED PRN Witch Deysi [Tucks] 1 pad TOP ASDIRECTED PRN oxyCODONE 5 mg PO Q2H PRN Assess Lochia [WOMSER] Per Unit Routine Assess Uterine Involution [WOMSER] Per Unit Routine Perineal Care [OM.PC] Per Unit Routine Peripheral IV Discontinue [OM.PC] Routine 08/18/18 01:41 Ice Therapy [OM.PC] Per Unit Routine 08/18/18 12:00 CBC W/O DIFF,HEMOGRAM [HEME] Routine 08/18/18 Breakfast Regular Diet [DIET] - Assessment Assessment:: PPD 0 status post /2nd MLL repaired Preeclampsia - Plan Plan:: Blood pressures improved, 120/60s. Denies headache or visual changes. Continue cares. Lab ordered for noon today.
[2018-08-18] MEDS: Acetaminophen 500 MG Tab PO PRN ×2 (11:55→19:53)
[2018-08-19] MEDS: Ibuprofen 800 MG Tab PO PRN (00:06)
[2018-08-19 07:49] VITALS: BP 136/76
--- NOTE | 2018-08-19 08:57 | PCM.PNPP ---
- General Info Date of Service: 08/19/18 Functional Status: Reports: Pain Controlled, Tolerating Diet, Ambulating, Urinating - Review of Systems General: Denies: Fever, Weakness Pulmonary: Denies: Shortness of Breath, Pleuritic Chest Pain Cardiovascular: Denies: Chest Pain, Palpitations, Lightheadedness Gastrointestinal: Reports: No Symptoms Genitourinary: Reports: No Symptoms Musculoskeletal: Reports: No Symptoms Skin: Reports: No Symptoms Neurological: Reports: No Symptoms - General Info Date of Service: 08/19/18 - Patient Data Vital Signs - Most Recent: Last Vital Signs Temp 36.6 C 08/19/18 07:46 Pulse 74 08/19/18 07:46 Resp 17 08/19/18 07:46 BP 136/76 08/19/18 07:46 Pulse Ox 97 08/19/18 07:46 Weight - Most Recent: 123.377 kg Lab Results - Last 24 Hours: Laboratory Results - last 24 hr 08/18/18 Range/Units 12:21 WBC 14.05 H (4.0-11.0) K/uL RBC 4.18 L (4.30-5.90) M/uL Hgb 10.6 L (12.0-16.0) g/dL Hct 33.5 L (36.0-46.0) % MCV 80.1 (80.0-98.0) fL MCH 25.4 L (27.0-32.0) pg MCHC 31.6 (31.0-37.0) g/dL RDW Std Deviation 39.6 (28.0-62.0) fl RDW Coeff of Ayush 14 (11.0-15.0) % Plt Count 270 (150-400) K/uL MPV 12.10 H (7.40-12.00) fL Nucleated RBC % 0.0 /100WBC Nucleated RBCs # 0 K/uL Med Orders - Current: Current Medications Acetaminophen (Tylenol Extra Strength) 500 mg PO Q4H PRN PRN Reason: Pain Acetaminophen (Tylenol Extra Strength) 1,000 mg PO Q4H PRN PRN Reason: Pain Last Admin: 08/18/18 19:53 Dose: 1,000 mg Benzocaine/Menthol (Dermoplast Pain Relief 20%-0.5% [place]) 78 gm TOP ASDIRECTED PRN PRN Reason: Perineal Comfort Measure Bisacodyl (Dulcolax) 10 mg RECTAL ONETIME PRN PRN Reason: Constipation Carboprost Tromethamine (Hemabate Ds) 250 mcg IM ASDIRECTED PRN PRN Reason: Post Hemorrhage Docusate Sodium (Colace) 100 mg PO BID PRN PRN Reason: Constipation Emollient Ointment (Lansinoh Hpa) 0 gm TOP ASDIRECTED PRN PRN Reason: Sore Nipples Last Admin: 08/18/18 02:39 Dose: 7 gm Lactated Ringer's (Ringers, Lactated) 1,000 mls @ 150 mls/hr IV ASDIRECTED NASIMA Last Admin: 08/17/18 20:03 Dose: 150 mls/hr Oxytocin/Sodium Chloride (Oxytocin 30 Unit/500 Ml-Ns) 30 unit in 500 mls @ 999 mls/hr IV TITRATE NASIMA Tranexamic Acid 1,000 mg/ (Sodium Chloride) 110 mls @ 660 mls/hr IV ONETIME PRN PRN Reason: Bleeding Oxytocin/Sodium Chloride (Oxytocin 30 Unit/500 Ml-Ns) 30 unit in 500 mls @ 2 mls/hr IV TITRATE NASIMA; Protocol Last Infusion: 08/18/18 01:14 Dose: 500 mls/hr Ibuprofen (Motrin) 400 mg PO Q4H PRN PRN Reason: Pain Ibuprofen (Motrin) 800 mg PO Q6H PRN PRN Reason: Pain Last Admin: 08/19/18 00:06 Dose: 800 mg Lidocaine HCl (Xylocaine 1%) 50 ml INJECT ONETIME PRN PRN Reason: Laceration repair Methylergonovine Maleate (Methergine) 0.2 mg IM ASDIRECTED PRN PRN Reason: Post Hemorrhage Nalbuphine HCl (Nubain) 10 mg IVPUSH Q1H PRN PRN Reason: Pain (severe 7-10) Ondansetron HCl (Zofran) 4 mg IV Q4H PRN PRN Reason: Nausea/Vomiting Oxycodone HCl (Oxycodone) 5 mg PO Q2H PRN PRN Reason: Pain Sodium Chloride (Saline Flush) 10 ml FLUSH ASDIRECTED PRN PRN Reason: Keep Vein Open Sodium Chloride (Saline Flush) 2.5 ml FLUSH ASDIRECTED PRN PRN Reason: Keep Vein Open Sodium Chloride (Normal Saline) 10 ml IV ASDIRECTED PRN PRN Reason: IV Use Sterile Water (Sterile Water For Irrigation) 1,000 ml IRR ASDIRECTED PRN PRN Reason: delivery [place] (Tucks) 1 pad TOP ASDIRECTED PRN PRN Reason: comfort care Discontinued Medications Butorphanol Tartrate (Stadol) 1 mg IVPUSH Q1H PRN PRN Reason: Pain Fentanyl (Sublimaze) Confirm Administered Dose 100 mcg .ROUTE .STK-MED ONE Stop: 08/17/18 19:22 Last Admin: 08/17/18 21:54 Dose: Not Given Fentanyl/Bupivacaine HCl (Lcmnyybv-Agnwc-Ta 2 Mcg/Ml-0.125%) Confirm Administered Dose 100 mls @ as directed .ROUTE .STK-MED ONE Stop: 08/17/18 19:23 Last Admin: 08/17/18 21:54 Dose: Not Given Lidocaine/Epinephrine (Lidocaine 1.5%-Epi 1:200,000) Confirm Administered Dose 5 ml IJ .ST[employer]-MED ONE Stop: 08/17/18 19:23 Last Admin: 08/17/18 21:54 Dose: Not Given - Interaction Support Person: - Recovery Exam Fundal Tone: Firm Fundal Level: 1 Fingerbreadths Below Umbilicus Fundal Placement: Midline Lochia Amount: Scant Lochia Color: Rubra/Red Perineum Description: Intact, Minimal Bruising/Swelling Episiotomy/Laceration: Approximated Bladder Status: Voiding - Exam General: Alert, Oriented Lungs: Normal Respiratory Effort Cardiovascular: Regular Rate, Regular Rhythm GI/Abdominal Exam: Normal Bowel Sounds, Soft Extremities: Pedal Edema (1+_). No: Mor's Sign Skin: Warm, Dry, Intact Neurological: No New Focal Deficit Psy/Mental Status: Alert, Normal Affect, Normal Mood - Problem List & Annotations (1) Vaginal delivery SNOMED Code(s): 423245169 Code(s): O80 - ENCOUNTER FOR FULL-TERM UNCOMPLICATED DELIVERY Status: Acute Current Visit: No (2) Mild preeclampsia SNOMED Code(s): 16851059 Code(s): O14.00 - MILD TO MODERATE PRE-ECLAMPSIA, UNSPECIFIED TRIMESTER Status: Acute Current Visit: Yes - Problem List Review Problem List Initiated/Reviewed/Updated: Yes - My Orders Last 24 Hours: My Active Orders 08/19/18 08:54 Ready for Discharge [RC] PER UNIT ROUTINE - Assessment Assessment:: PPD 1 status post /2nd MLL repaired Preeclampsia - Plan Plan:: Blood pressures remain reassuring, denies headache or visual changes. She is feeling well. Would like to go home. Discharge to home with follow up in one week for BP check at clinic and 6 week PP Discharge instructions reviewed. Infection and bleeding warnings reviewed.
== END 2018-08-19 12:40 | disposition home or self-care (01) | DRG 560 ==
LOC: MW.OBCHECK 15:49 → MW.OB 15:51 → MW.OBCHECK 16:26 → MW.OB 16:26 → OBSVTOIN 08-18 01:40 → MW.OB 08-18 05:22
PROVIDERS: ADMIT Obstetrics & Gynecology; ATTEND Obstetrics & Gynecology
PROC: 00HU33Z Insertion of Infusion Device into Spinal Canal, Percutaneous Approach (ICD-10-PCS; 2018-08-17)
PROC: 3E0R3BZ Introduction of Anesthetic Agent into Spinal Canal, Percutaneous Approach (ICD-10-PCS; 2018-08-17)
PROC: 6A550ZT Pheresis of Cord Blood Stem Cells, Single (ICD-10-PCS; principal; 2018-08-18)
PROC: 10907ZC Drainage of Amniotic Fluid, Therapeutic from Products of Conception, Via Natural or Artificial Opening (ICD-10-PCS; principal; 2018-08-18)
PROC: 3E033VJ Introduction of Other Hormone into Peripheral Vein, Percutaneous Approach (ICD-10-PCS; principal; 2018-08-18)
PROC: 0KQM0ZZ Repair Perineum Muscle, Open Approach (ICD-10-PCS; principal; 2018-08-18)
PROC: 10E0XZZ Delivery of Products of Conception, External Approach (ICD-10-PCS; principal; 2018-08-18)
DX: O14.04 Mild to moderate pre-eclampsia, complicating childbirth (principal); O36.63X0 Maternal care for excessive fetal growth, third trimester, not applicable or unspecified; Z37.0 Single live birth; O99.214 Obesity complicating childbirth; E66.9 Obesity, unspecified; O99.62 Diseases of the digestive system complicating childbirth; K21.9 Gastro-esophageal reflux disease without esophagitis; Z88.0 Allergy status to penicillin; O70.1 Second degree perineal laceration during delivery
CPT/HCPCS: 36415; 51702; 59025; 59409; 80053; 82803; 85027; 86850; 86900; 86901; A9270-GY; J2590; J3010; J7120